=== PATIENT | female | born 1985 | race Caucasian/White ===

== ENCOUNTER 2016-12-23 16:19 | Inpatient (IN) | payer OTHER ==
--- NOTE | ~2016-12-23 | HP ---
Unit #: [id number] #: [id number] Patient: ZAID HAIRSTON [id number] [place] [address] [id number] MR#: [id number] NAME: ZAID HAIRSTON ROOM: P259 Age: 31 Sex: F Admission Date: 12/23/2016 : 1985 Attending Physician: Carroll Carlos M.D. Admitting Physician: Carroll Carlos M.D. Primary Care Physician: Thu Kaur M.D. HISTORY AND PHYSICAL Zaid is a 31 year old female who was admitted and discharged within the first 24 hours. She was not seen for an H and P. Dictated by... Juany Moore P.A.-C. for Diana Carlos/jerrod TD: 12/24/2016 16:19 JOB #: [id number] HISTORY AND PHYSICAL Page 1 of 1 X Juany Moore HISTORY AND PHYSICAL
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
--- NOTE | ~2016-12-23 | DS ---
Unit #: [id number] #: [id number] Patient: ZAID HAIRSTON [id number] [place] [address] [id number] MR#: [id number] NAME: ZAID HAIRSTON ROOM: P259 Age: 31 Sex: F Admission Date: 12/23/2016 : 1985 Discharge Date: 12/24/2016 Attending Physician: Carroll Carlos M.D. Primary Care Physician: Thu Kaur M.D. DISCHARGE SUMMARY REASON FOR ADMISSION Zaid is a 31-year-old woman with a history of posttraumatic stress disorder, who came to the emergency room after being embroiled in argument with her boyfriend's family and had been off her psychiatric medications for several days. She made homicidal statements, but no suicidal statements and was able to contract for safety. However, she was transferred to [facility] due to her emotional lability. DIAGNOSTIC STUDIES LABORATORY RESULTS: Please see referring hospital records. HOSPITAL COURSE The patient was admitted and placed on suicide precautions. Her home medications of lamotrigine, alprazolam, Vyvanse and trazodone were restarted and unchanged. After discussion during the initial psychiatric interview, the patient adamantly denied suicidal ideation, intent, or plan or any specific thoughts of harming others. She wished to be discharged home to care for her children and follow up with [facility], and was looking forward to a referral to a psychiatrist to accomplish this. At this point, she was able to give a reliable contract for safety and I felt that she was safe to release to the community. DISCHARGE DIAGNOSES AXIS I: 1. Posttraumatic stress disorder, chronic, F43.12. 2. Adjustment disorder with depressed mood, F43.21. AXIS II: Diagnosis deferred. AXIS III: History of hypertension. AXIS IV: AXIS V: DISCHARGE INSTRUCTIONS The patient will follow up with [facility] and primary care physician. DISCHARGE MEDICATIONS Lamotrigine 100 mg daily for mood stability, alprazolam 1 mg t.i.d. for anxiety, Vyvanse 20 mg daily for attention deficit, trazodone 50 to 100 mg at bedtime as needed for insomnia. CONDITION AT DISCHARGE Improved. Unit #: [id number] #: [id number] Patient: ZAID HAIRSTON PROGNOSIS Fair to good. DIET AND ACTIVITY Per primary care physician. Dictated by... Diana Roldan/donato TD: 12/25/2016 07:20 JOB #: [id number] DISCHARGE SUMMARY Page 1 of 1 X Carroll Carlos MD X DISCHARGE SUMMARY
[2016-12-24 09:26] LABS: BASOPHIL# 0.1 X10e3 (0-0.3); BASOPHIL% 0.6 % (0-2.5); EOSINOPHIL# 0.3 X10e3 (0-0.7); EOSINOPHIL% 2.7 % (0.0-7.0); HEMATOCRIT 42.5 % (35.0-45.0); HEMOGLOBIN 13.7 gm/dL (12.0-16.0); LYMPHOCYTE# 4.7 X10e3 (1.0-3.5); LYMPHOCYTE% 44.7 % (17.0-45.0); MEAN CELL VOLUME 89.8 FL (83-96); MEAN CORPUSCULAR HEMOGLOBIN 29.1 PG (28-34); MEAN CORPUSCULAR HGB CONC 32.3 g/dL (30-36); MEAN PLATELET VOLUME 7.8 FL (6.5-11.5); MONOCYTE# 0.6 X10e3 (0-1.0); MONOCYTE% 5.8 % (3.0-12.0); NEUTROPHIL# 4.9 X10e3 (1.5-7.1); NEUTROPHIL% 46.2 % (40-75); PLATELET COUNT 383 X10e3 (140-420); RED BLOOD COUNT 4.73 X10e (3.90-5.30); RED CELL DISTRIBUTION WIDTH 13.6 % (11.0-15.5); WHITE BLOOD COUNT 10.5 X10e3 (4.0-10.5)
[2016-12-24 09:31] LABS: DIFF IND NO
[2016-12-24 10:09] LABS: ALBUMIN SERUM 4.3 g/dL (3.5-5.0); BILIRUBIN,TOTAL 0.7 mg/dL (0.2-2.0); BUN/CREATININE RATIO 12.85; CALCIUM SERUM 9.9 mg/dL (8.4-10.2); CREATININE SERUM 0.7 mg/dL (0.6-1.4); GLOM FILT RATE Estimated 116.3 mL/min (>60); POTASSIUM 4.4 mmol/L (3.5-5.1); PROTEIN TOTAL SERUM 7.3 g/dL (6.0-8.3)
== END 2016-12-24 14:00 | disposition home or self-care (01) | DRG 881 ==
LOC: P2L 16:19
PROVIDERS: Psychiatry & Neurology Psychiatry
DX: F43.21 Adjustment disorder with depressed mood (principal); Z91.14 Patient's other noncompliance with medication regimen; I10 Essential (primary) hypertension; F43.12 Post-traumatic stress disorder, chronic
CPT/HCPCS: 80053; 84703; 85025; 90688